=== PATIENT | male | born 1965 | race Caucasian/White ===

== ENCOUNTER 2017-04-16 16:43 | Emergency (ER) | payer OTHER ==
--- NOTE | 2017-04-16 17:52 | ED ---
Back Pain - HPI Summary HPI Summary: 51 male presents to ED with complaints of "throwing out his low back". States he was helping push a car that was stuck in snow when he twisted and legs came out from under him. This occurred around 10:00am today. Has since been in excruciating pain and is unable to stand up completely straight without pain. States pain radiates into his buttocks and groin. Denies saddle anesthesia, weakness of lower extremities, numbness/tingling and bladder/bowel incontinence. Patient states He took 2 motrin at 3pm today without relief. Has also been using heat. No other complaints. No PMHx. No other medications. Does admit to similar pain in the past when he previously has hurt his back. - History of Current Complaint Chief Complaint: EDBackInjuryPain Stated Complaint: BACK PAIN Time Seen by Provider: 04/16/17 17:49 Hx Obtained From: Patient Onset/Duration: Sudden Onset, Lasting Hours, Still Present Onset/Duration: Started Hours Ago - 10am today, Traumatic, Still Present Timing: Constant Back Pain Location: Is Discrete @ - L1-L5 region and bilateral, lumbosacral muscles Severity Initially: Moderate Severity Currently: Moderate Pain Intensity: 5 Pain Scale Used: 0-10 Numeric Character: Sharp, Aching, Spasmodic, Stiffness Aggravating Symptom(s): Movement, Other - standing straight and laying prone Alleviating Symptom(s): Rest, Position Associated Signs And Symptoms: Positive: Negative. Negative: Weakness, Numbness , Tingling, Bladder Incontinence, Bowel Incontinence, Weight Loss, Pain with Weight Bearing - Risk Factors AAA Risk Factors: Negative TAD Risk Factors: Negative Cauda Equina Risk Factors: Negative - Allergies/Home Medications Allergies/Adverse Reactions: Allergies Allergy/AdvReac Type Severity Reaction Status Date / Time No Known Allergies Allergy Verified 04/16/17 17:18 PMH/Surg Hx/FS Hx/Imm Hx Endocrine/Hematology History: Denies: Hx Diabetes Cardiovascular History: Denies: Hx Hypertension Respiratory History: Denies: Hx Asthma Musculoskeletal History: Reports: Hx Back Problems - previously had strains - Surgical History Surgery Procedure, Year, and Place: n/a - Immunization History Immunizations Up to Date: Yes Infectious Disease History: No Infectious Disease History: Denies: Traveled Outside the [place] in Last 30 Days - Family History Known Family History: Positive: None - Social History Alcohol Use: Occasionally Substance Use Type: Reports: None Smoking Status (MU): Never Smoked Tobacco Review of Systems Constitutional: Negative Cardiovascular: Negative Respiratory: Negative Positive: Arthralgia, Myalgia, Decreased ROM - low back Skin: Negative Neurological: Negative All Other Systems Reviewed And Are Negative: Yes Physical Exam Triage Information Reviewed: Yes Vital Signs On Initial Exam: Initial Vitals Temp Pulse Resp BP Pulse Ox 99.2 F 88 19 142/98 97 04/16/17 17:09 04/16/17 17:09 04/16/17 17:09 04/16/17 17:09 04/16/17 17:09 Vital Signs Reviewed: Yes Appearance: Positive: Well-Appearing, Well-Nourished, Pain Distress - moderate worse with changing positions Skin: Positive: Warm, Skin Color Reflects Adequate Perfusion, Dry. Negative: Cold, Numb, Cyanosis @, Pale, Erythema @ Head/Face: Positive: Normal Head/Face Inspection Eyes: Positive: Conjunctiva Clear ENT: Positive: Hearing grossly normal Neck: Positive: Supple, Nontender Respiratory/Lung Sounds: Positive: Clear to Auscultation, Breath Sounds Present. Negative: Rales, Rhonchi, Wheezes Cardiovascular: Positive: Normal, RRR, Pulses are Symmetrical in both Upper and Lower Extremities - 2+. Negative: Murmur, Rub Abdomen Description: Positive: Nontender, No Organomegaly, Soft Bowel Sounds: Positive: Present Musculoskeletal: Positive: Limited @ - with straightening and movement of lower back L1-L5 level. rest of MSK exam intact, Pain @ - on palpation of paraspinal muscles L1-L5 bilaterally. Negative: Interruption @, Abnormal @, Edema Left, Edema Right Neurological: Positive: Normal, Sensory/Motor Intact, Alert, Oriented to Person Place, Time, CN Intact II-III, Reflexes Intact, NV Bundle Intact Distally, Normal Gait. Negative: Facial Symmetry, Speech Normal - Ba Coma Scale Coma Scale Total: 15 Diagnostics - Vital Signs Vital Signs Temp Pulse Resp BP Pulse Ox 04/16/17 17:09 99.2 F 88 19 142/98 97 - Laboratory Lab Statement: Any lab studies that have been ordered have been reviewed, and results considered in the medical decision making process. - Radiology lumbosacral Xray Interpretation: No Acute Changes - normal radiograph Radiology Interpretation Completed By: ED Physician - Dr Che and myself Back Pain Course/Dx - Course Course Of Treatment: given toradol and lidoderm patch while in ED. xray obtained and negative for acute findings. will treat as lumbosacral strain at this time. continue ibuprofen, heat and take pain relief as needed along with flexeril muscle relaxer. follow up pcp. aware of worsening signs and symptoms. no concern for other etiology at this time. normal PE and vitals. - Diagnoses Differential Diagnosis/HQI/PQRI: Positive: Fracture, Herniated Disc, Strain, Sprain Provider Diagnoses: Low back pain, Lumbosacral strain Discharge - Discharge Plan Condition: Stable Disposition: HOME Prescriptions: Cyclobenzaprine TAB* [Flexeril 10 MG TAB*] 10 mg PO BID PRN #20 tab PRN Reason: Spasms HYDROcodone/ACETAMIN 5-325 MG* [Cataldo 5-325 TAB*] 1 tab PO Q6H PRN #14 tab MDD 2 PRN Reason: Pain Ibuprofen TAB* [Motrin TAB* 600 MG] 600 mg PO Q6H PRN #30 tab PRN Reason: Pain Patient Education Materials: Low Back Strain (ED), Acute Low Back Pain (ED) Referrals: No Primary Care Phys,NOPCP [Primary Care Provider] - [facility] [place] [facility] [Outside] Additional Instructions: Take prescribed medication as directed, do not drive while taking these medication. Continue taking ibuprofen as prescribed for the next 3-5 days or while symptoms persist, to help with pain and inflammation. Take with food. Do not take any ibuprofen until tomorrow at Noon. Remember to remove lidoderm patch tomorrow morning at 7-8am. Apply heat and refrain from lifting or straining for the next 1-2 weeks. Follow up with PCP. Any new or worsening symptoms please seek medical attention promptly, as discussed.
[2017-04-16] MEDS ORDERED: Ketorolac INJ* 60 MG/2 ML VIAL IM ONE (18:41)
[2017-04-16] MEDS ORDERED: Lidocaine PATCH 5%* 1 PATCH ONE (18:55)
[2017-04-16] MEDS ORDERED: Lidocaine PATCH 5%* 1 PATCH TRANSDERM SCH (19:00)
[2017-04-16] MEDS ORDERED: Cyclobenzaprine TAB* 10 MG PO ONE (19:22)
[2017-04-16] MEDS ORDERED: HYDROcodone/ACETAMIN 5-325 MG* 1 TAB PO ONE (19:22)
[2017-04-16 19:54] VITALS: BP 119/76
[2017-04-16] MEDS ORDERED: Lidocaine Patch REMOVE* 1 NOTE MISC SCH (21:00)
--- NOTE | 2017-04-16 21:07 | RAD ---
Indication: Back pain. 5 views of lumbar spine demonstrates vertebral bodies to be normal in height. Disc spaces all well-preserved. No compression fracture is noted. Disc spaces all well-preserved. Pedicles appear intact. IMPRESSION: Unremarkable lumbar spine.
== END 2017-04-16 19:53 | disposition home or self-care (01) ==
LOC: ED 16:43
DX: S39.012A Strain of muscle, fascia and tendon of lower back, initial encounter (principal); M54.5 Low back pain; X50.9XXA Other and unspecified overexertion or strenuous movements or postures, initial encounter; Y93.9 Activity, unspecified; Y92.9 Unspecified place or not applicable
CPT/HCPCS: 72110; 96372; 99282; A9270-GY; J1885